=== PATIENT | male | born 1960 | race Caucasian/White ===

== ENCOUNTER 2019-01-31 08:14 | Day surgery (SDC) | payer BC ==
[~2019-01-31] VITALS: Ht 162.6 cm; Wt 88.8 kg
[~2019-01-31 08:14] MED LIST: AMLO10 PO; CARV3.125 PO; EZET10 PO; LO-DOSE ASPIRIN81 MG PO; METF500 PO; TRAN2 PO
== END 2019-01-31 10:24 | disposition home or self-care (01) ==
LOC: ORSCSDS 08:14
PROVIDERS: Surgery
PROC: 0DBL8ZX Excision of Transverse Colon, Via Natural or Artificial Opening Endoscopic, Diagnostic (ICD-10-PCS; principal; 2019-01-31 09:30)
DX: Z12.11 Encounter for screening for malignant neoplasm of colon (principal); D12.3 Benign neoplasm of transverse colon; Z86.010 Personal history of colon polyps; G47.33 Obstructive sleep apnea (adult) (pediatric); K21.9 Gastro-esophageal reflux disease without esophagitis; I10 Essential (primary) hypertension; E78.5 Hyperlipidemia, unspecified; E11.9 Type 2 diabetes mellitus without complications; E66.9 Obesity, unspecified; Z68.34 Body mass index [BMI] 34.0-34.9, adult; Z79.82 Long term (current) use of aspirin; Z79.84 Long term (current) use of oral hypoglycemic drugs; Z79.899 Other long term (current) drug therapy
CPT/HCPCS: 82947; 88305; J2704; J7120

== ENCOUNTER 2021-07-28 11:42 | Inpatient (IN) | payer BC ==
[~2021-07-28] VITALS: Ht 160 cm; Wt 85.8 kg
[~2021-07-28 11:42] MED LIST changes: +ASPIR 8181 MG PO; -LO-DOSE ASPIRIN81 MG PO; +NITR.4SL SL; +PANT40 PO; +TICA90TA PO
[2021-07-28 12:52] LABS: BASOPHILS ABSOLUTE AUTO 0.04 K/mm3 (0.00-0.23); BASOPHILS PERCENT AUTO 0 % (0-2); EOSINOPHILS ABSOLUTE AUTO 0.03 K/mm3 (0.00-0.68); EOSINOPHILS PERCENT AUTO 0 % (0-6); Hemoglobin 16.5 g/dL (13.5-17.5); IMMATURE GRAN ABSOLUTE AUTO 0.07 K/mm3 (0.00-0.10); IMMATURE GRAN PERCENT AUTO 1 % (0-1); LYMPHOCYTES ABSOLUTE AUTO 1.99 K/mm3 (0.84-5.20); LYMPHOCYTES PERCENT AUTO 14 % (21-46); MONOCYTES ABSOLUTE AUTO 1.83 K/mm3 (0.16-1.47); MONOCYTES PERCENT AUTO 13 % (4-13); Mean Corpuscular HGB 30.1 pg (26.0-34.0); Mean Corpuscular HGB Conc 35.1 g/dL (31.5-36.5); Mean Corpuscular Volume 86 fL (80-100); Mean Platelet Volume 10.8 fL (9.1-12.4); NEUTROPHILS ABSOLUTE AUTO 10.32 K/mm3 (1.96-9.15); NEUTROPHILS PERCENT AUTO 72 % (41-73); Platelet Count 201 K/mm3 (150-400); RDW Coefficient Variation 11.6 % (11.7-14.2); RDW Standard Deviation 36.6 fL (35.1-46.3); Red Blood Cell Count 5.49 M/mm3 (4.30-5.90); White Blood Cell Count 14.28 K/mm3 (4.00-11.30)
[2021-07-28 13:14] LABS: Troponin I <0.015 ng/mL (0.000-0.040)
[2021-07-28 13:16] LABS: Alanine Aminotransfer (ALT/SGP 67 U/L (12-78); Albumin, Blood 3.6 g/dL (3.4-5.0); Albumin/Globulin Ratio 0.8 (0.8-1.8); Alk Phos 85 U/L (50-136); Anion Gap 7 mmol/L (6-16); Aspartate Aminotrans (AST/SGOT 24 U/L (12-37); Bilirubin, Total 0.5 mg/dL (0.1-1.0); Blood Urea Nitrogen 23 mg/dL (8-24); Bun/Creatinine Ratio 16.8 (12.0-20.0); CO2, Blood 27 mmol/L (21-32); Calcium, Blood 9.7 mg/dL (8.5-10.1); Chloride, Blood 99 mmol/L (98-108); Creatinine, Blood 1.37 mg/dL (0.60-1.20); Globulin, Blood 4.6 g/dL (2.2-4.0); Glomerular Filtration Rate 53 (60-); Glucose, Blood 283 mg/dL (70-99); Potassium, Blood 3.6 mmol/L (3.5-5.5); Sodium, Blood 133 mmol/L (136-145); Total Protein, Blood 8.2 g/dL (6.4-8.2)
[2021-07-28] MEDS ORDERED: SPIR25 PO (17:17)
[2021-07-28] MEDS ORDERED: OMEP20ER PO (17:18)
[2021-07-28] MEDS ORDERED: OMEGA-3 + VITA200 ML PO (17:24)
[2021-07-28] MEDS ORDERED: REPATHA SU140 MG/1 M (17:26)
[2021-07-28] MEDS ORDERED: HYDCHL25 PO (17:27)
[2021-07-28] MEDS ORDERED: RANO500T PO (17:28)
[2021-07-28] MEDS ORDERED: FAMO40 PO (17:29)
--- NOTE | 2021-07-28 18:05 | NUR ---
ASSUMED CARE NOTE: ASSUMED CARE OF PT AT 1700, RECEVIED REPORT FROM KP CALVO. PT IS ALERT AND ORIENTEDX4, ABLE TO FOLLOW COMMANDS AND COMMUNICATE NEEDS. PT C/O ABD PAIN 5/10, DULL CONSTANT PAIN. PER REPORT MORPHINE WAS GIVEN ONCE, UNABLE TO TOLERATE EFFECTS STATES " IT MAKES MY CHEST FEEL HEAVY" PT IS IN NSR WITH HR IN THE 90'S, BP STABLE. ANTIBIOTICS ON HOLD PER . AMDIT HISTORY AND MED REQ COMPLETED. SEE FULL ASSESSMENT. WILL CONTINUE TO MONITOR PT UNTIL REPORT IS GIVEN TO MED/SURG NURSE.
[2021-07-28 19:25] LABS: Source, Urine Clean Catch
[2021-07-28 19:29] LABS: Appearance, Urine Clear (Clear); Bilirubin, Urine Neg (Neg); Blood, Urine Neg (Neg); Color, Urine Yellow (P-Yellow); Glucose Qualitative, Urine 4+ (Neg); Ketones, Urine Neg (Neg); Leukocyte Esterase, Urine Neg (Neg); Nitrite, Urine Neg (Neg); Protein, Urine Neg (Neg); Urobilinogen, Urine NORM (Normal)
[2021-07-28 20:58] LABS: CPK Creatine Kinase 108 U/L (39-308); Troponin I <0.015 ng/mL (0.000-0.040)
--- NOTE | 2021-07-28 22:27 | NUR ---
ADMIT NOTE 61 YR OLD MALE ADMITTED TO THE FLOOR FROM THE ED WITH DX OF SYNCOPAL EPISODES AND COLITIS. ED RN REPORTED PT HAD SYNCOPAL EPISODES AT WORK, EVEN HAVING A LOS OF CONSCIOUSNESS THERE AFTER REPORTING ABD PAIN AND FATIGUE. HX OF BRADYCARDIA, MA SOME 15 YR AGO WITH STENTS PLACED. NOTE CHEST SCAR WHEN PLACING ELECTRODES FOR TELE MONITORING. LABORER HIDE HOUSE REPORTS SINUS IN 90'S. ALERT AND OREIENTED X 4. CALL LIGHT IN REACH
--- NOTE | 2021-07-29 02:56 | NUR ---
SHIFT SUMMARY PT ADMITTED FROM ED FOR SYNCOPE AND CP. NO ACUTE CHANGES SINCE PT BROUGHT TO US. PT IS A&O X4, BUT WAS DROWSY. PT HAS BEEN SLEEPING SINCE COMING TO MEDICAL FLOOR. , JOE, WILL RETURN THIS AFTERNOOON, HER PHONE NUMBER IS ON THE BOARD. PT ON TELE WITH SINUS TACH IN THE 90'S. PT BIOX BETWEEN 90-95 ON HOME CPAP. NS RUNNING AT 75/HR, ORDER TO BE DC'D AFTER THIS BAG COMPLETE. CALL LIGHT WITHIN REACH. WILL CONTINUE TO MONITOR.
[2021-07-29 04:53] LABS: BASOPHILS ABSOLUTE AUTO 0.02 K/mm3 (0.00-0.23); BASOPHILS PERCENT AUTO 0 % (0-2); EOSINOPHILS PERCENT AUTO 0 % (0-6); Hematocrit 45.7 % (37.0-53.0); IMMATURE GRAN ABSOLUTE AUTO 0.04 K/mm3 (0.00-0.10); IMMATURE GRAN PERCENT AUTO 0 % (0-1); LYMPHOCYTES ABSOLUTE AUTO 0.88 K/mm3 (0.84-5.20); LYMPHOCYTES PERCENT AUTO 9 % (21-46); MONOCYTES ABSOLUTE AUTO 1.07 K/mm3 (0.16-1.47); MONOCYTES PERCENT AUTO 11 % (4-13); Mean Corpuscular HGB 29.9 pg (26.0-34.0); Mean Corpuscular Volume 85 fL (80-100); Mean Platelet Volume 10.7 fL (9.1-12.4); NEUTROPHILS ABSOLUTE AUTO 7.51 K/mm3 (1.96-9.15); NEUTROPHILS PERCENT AUTO 79 % (41-73); Platelet Count 154 K/mm3 (150-400); RDW Coefficient Variation 11.7 % (11.7-14.2); RDW Standard Deviation 36.3 fL (35.1-46.3); Red Blood Cell Count 5.35 M/mm3 (4.30-5.90); White Blood Cell Count 9.52 K/mm3 (4.00-11.30)
[2021-07-29 05:09] LABS: CPK Creatine Kinase 61 U/L (39-308); Troponin I <0.015 ng/mL (0.000-0.040)
[2021-07-29 05:17] LABS: Albumin/Globulin Ratio 0.7 (0.8-1.8); Bilirubin, Total 0.4 mg/dL (0.1-1.0); Bun/Creatinine Ratio 16.5 (12.0-20.0); Calcium, Blood 8.9 mg/dL (8.5-10.1); Creatinine, Blood 1.27 mg/dL (0.60-1.20); Globulin, Blood 4.2 g/dL (2.2-4.0); Potassium, Blood 3.3 mmol/L (3.5-5.5); Total Protein, Blood 7.2 g/dL (6.4-8.2)
[2021-07-29 13:31] LABS: Adenovirus F 40/41 Not Detected (NOT DETECT); Astrovirus Not Detected (NOT DETECT); Campylobacter Sp Not Detected (NOT DETECT); Cryptosporidium Not Detected (NOT DETECT); Cyclospora Cayetanensis Not Detected (NOT DETECT); E. Coli O157 Not Detected (NOT DETECT); Entamoeba Histolytica Not Detected (NOT DETECT); Enteroaggregative E. coli-EAEC Not Detected (NOT DETECT); Enteropathogenic E. coli-EPEC Not Detected (NOT DETECT); Enterotoxigenic E. coli-ETEC Not Detected (NOT DETECT); Giardia Lamblia Not Detected (NOT DETECT); Norovirus GI/GII Not Detected (NOT DETECT); Plesiomonas Shigelloides Not Detected (NOT DETECT); Rotavirus A Not Detected (NOT DETECT); Salmonella Sp Detected (NOT DETECT); Sapovirus Not Detected (NOT DETECT); Shiga Toxin-prod E. coli-STEC Not Detected (NOT DETECT); Shigella/Enteroin E. coli-EIEC Not Detected (NOT DETECT); Vibrio Cholerae Not Detected (NOT DETECT); Vibrio Sp Not Detected (NOT DETECT); Yersinia Enterocolitica Not Detected (NOT DETECT)
--- NOTE | 2021-07-29 13:39 | NUR ---
PT AAOX4, NO ACUTE DISTRESS NOTED,NOTED WITH A TEMP OF 101.3, MD NOTIFIED AND TYLENOL 650MG TAB GIVEN WITH GOOD EFFECT, STOOL SAMPLE COLLECTED AND SENT TO LAB, CALLED AND WAS CONCERNED, NOTIFIED MD AND HE SPOKE TO HER. LACTIC ACID 3.2 ,MD NOTIFIED ORDERS IN PLACE, FLIUDS INCREASED, BLOOD CULTURES DRAWN, PT UPDATED WITH POC, CALL LIGHT IN PLACE, WILL CONT TO MONITOR.
--- NOTE | 2021-07-29 14:03 | NUR ---
PT STOOL POSITIVE FOR SAMONELLA, STARTED ON ANTIBIOTICS LEVAQUIN. NOTIFIED PT.
--- NOTE | 2021-07-29 18:43 | NUR ---
SHIFT SUMMARY/PT TRANSFER PT TRANSFERRED OT UNIT FROM ROOM 309. PHYSICAL INSTRUCTOR RECIEVED REPORT FROM ROOM 309 RN. VSS. NO CP OR PRESSURE. FIRST BOLUS OF IV FLUID RUNNING AT THIS TIME. WILL CONT TO MONITOR UNTIL REPORT GIVEN TO NIGHTSHIFT RN.
--- NOTE | 2021-07-29 21:27 | NUR ---
CARE ASSUMPTION PT LYING IN BED W DAUGHTER AT BEDSIDE DENYING ANY PAIN OR NAUSEA. PT HAD SLIGHT CHILLS W A ORAL TEMP OF 100.1 SO TYLENOL GIVEN W TEMP NOW 99.0 AND CHILLS RESOLVED. LR RUNNING AT 125ML/HR. HR IN THE 80'S AND BP WNL. O2 SATS >92% ON RM AIR.
[2021-07-30 04:35] LABS: Anion Gap 6 mmol/L (6-16); Blood Urea Nitrogen 16 mg/dL (8-24); Bun/Creatinine Ratio 16.3 (12.0-20.0); CO2, Blood 23 mmol/L (21-32); Calcium, Blood 7.1 mg/dL (8.5-10.1); Chloride, Blood 110 mmol/L (98-108); Creatinine, Blood 0.98 mg/dL (0.60-1.20); Glomerular Filtration Rate >60 (60-); Glucose, Blood 206 mg/dL (70-99); Potassium, Blood 3.8 mmol/L (3.5-5.5); Sodium, Blood 139 mmol/L (136-145)
--- NOTE | 2021-07-30 04:59 | NUR ---
DIGITAL MARKETING MANAGER SUMMARY PT IS AXO X4 AND USES THE CALL LIGHT TO MAKE HIS NEEDS KNOWN. PT CONTINUED TO BE FEBRILE FOR THE FIRST HALF OF THE SHIFT W A PEAK TEMP OF 101.6 AND TEMP IN THE 98.0'S FOR THE REST OF THE SHIFT. PT'S BP WNL AND STABLE THIS SHIFT. PT'S O2 SATS >92% ON RM AIR AND CPAP WHILE ASLEEP. PT HAD ONE EPISODE OF INCONTINENT LOOSE STOOL DURING THE NIGHT. LR RUNNING AT 125ML/HR. WILL REPORT TO ONCOMING RN.
--- NOTE | 2021-07-30 10:12 | NUR ---
PATIENT ALERT AND ORIENTED X4. NEURO WNL. PERRLA. ABLE TO MOVE ALL EXTREMITIES IN BED. DENIES NUMBNESS/TINGLING. BILATERAL WATCH ENGINEER STRENGTH. TELE SHOWING SINUS RHYTHM WITH HR 90'S. DENIES CHEST PAIN/PRESSURE. VITAL SIGNS STABLE. ON ROOM AIR SATING MID-HIGH 90'S. DENIES SOB. LUNGS SOUNDING CLEAR AND DIM IN BASES. NO COUGH. MILD ABDOMINAL DISTENTION. PATIENT DENIES ABDOMINAL PAIN BUT DESCRIBES IT A "DISCOMFORT". HAVING EPISODES OF DIARRHEA, PRN IMMODIUM. URINATING WNL. SKIN OVERALL C/D/I. T MAX THIS AM 101.5. TYLENOL AND IBUPROFEN GIVEN. TEMP TRENDING DOWN 99.6. WILL CONTINUE TO MONITOR. LR INFUSING AT THIS TIME. CALL LIGHT IN REACH. PATIENT CURRENTLY SLEEPING.
--- NOTE | 2021-07-30 12:46 | NUR ---
ONE LOOSE BOWEL MOVMENT THIS AFTERNOON. LR STOPPED AT 1200, ORDERS TO INFUSE FOR ONE DAY. LACTATE TRENDING DOWN. CALL PLACED TO GIRLFRIEND JOE FOR UPDATE. MEDICAL STATUS, NO TELE.
--- NOTE | 2021-07-30 17:39 | NUR ---
SHIFT SUMMARY: NO ACUTE CHANGES. PATIENT REMAINS ALERT AND ORIENTED. ON ROOM AIR. MEDICAL STATUS NO TELE. COMPLAINS OF MILD NAUSEA THIS EVENING, MEDICATED WITH ZOFRAN AND GOOD RELIEF. ANTIBIOTICS INFUSED. DAUGHTER AT BEDSIDE VISITING. VITALS SIGNS STABLE T MAX THIS SHIFT 101.5, AT THIS TIME 98.3. WILL CONTINUE TO MONITOR AND REPORT OFF.
--- NOTE | 2021-07-30 22:25 | NUR ---
ASSUMPTION OF CARE ASSUMED CARE OF PT FROM SAILAJA Lazo AT 2100. AGREE WITH ASSESMENT CHARTED AND INTERVENTIONS NOTED.
--- NOTE | 2021-07-31 05:33 | NUR ---
SHIFT SUMMARY NO ACUTE CHANGES THIS SHIFT. AXO. IN SR. TMAX 99.8. DIARRHEA LESSENING QUICKLY, HAS NOT REQUIRED IMMODIUM THIS SHIFT. PT HAS BEEN RESTING WITH HOME CPAP T/O SHIFT. UP IN ROOM W/O COMPLICATION. PT EAGER TO DC TODAY.
[2021-07-31] MEDS ORDERED: LEVO750 PO (12:53)
[2021-07-31] MEDS ORDERED: LOPE2C PO (12:53)
[2021-07-31] MEDS ORDERED: ONDA4 PO (12:54)
[2021-07-31] MEDS ORDERED: PROBIOTIC1 EA13 PO (12:57)
--- NOTE | 2021-07-31 14:15 | NUR ---
PT DISCHARGED HOME WITH ALL BELONGINS, PT DTR PRESENT AT BEDSIDE FOR DISCHARGE TEACHING INCLUDING FOLLOW UP APPOINTMENT, MEDICATION LIST AND EDUCATION. NO QUESTIONS OR CONCERNS FROM PT OR HIS DTR. IV AND POWERGLIDE REMOVED, WNL. PT STEADY ON HIS FEET AND ABLE TO AMBULATE IN ROOM WITHOUT ASSISTANCE. NO FURTHER DISCHARGE NEEDS IDENTIFIED AT THIS TIME.
== END 2021-07-31 14:05 | disposition home or self-care (01) | DRG 871 ==
LOC: ER 11:42 → ERHOLD 16:33 → MEDS 16:34 → ERHOLD 16:34 → MEDS 21:55 → PCU 07-29 18:26
PROVIDERS: Internal Medicine; Physician Assistant; ADMIT Internal Medicine
DX: A02.1 Salmonella sepsis (principal); R65.21 Severe sepsis with septic shock; A02.0 Salmonella enteritis; N17.9 Acute kidney failure, unspecified; E87.1 Hypo-osmolality and hyponatremia; I25.10 Atherosclerotic heart disease of native coronary artery without angina pectoris; K21.9 Gastro-esophageal reflux disease without esophagitis; I12.9 Hypertensive chronic kidney disease with stage 1 through stage 4 chronic kidney disease, or unspecified chronic kidney disease; E86.0 Dehydration; E87.6 Hypokalemia; K76.0 Fatty (change of) liver, not elsewhere classified; E11.22 Type 2 diabetes mellitus with diabetic chronic kidney disease; N18.2 Chronic kidney disease, stage 2 (mild); Z28.21 Immunization not carried out because of patient refusal; Z88.8 Allergy status to other drugs, medicaments and biological substances; Z88.2 Allergy status to sulfonamides; Z95.1 Presence of aortocoronary bypass graft; Z95.5 Presence of coronary angioplasty implant and graft; I25.2 Old myocardial infarction
CPT/HCPCS: 0097U; 36415; 71046; 74177; 80048; 80053; 81003; 82550; 82947; 83605; 83880; 84484; 85025; 87040; 93005; 93010; 94760; 96365; 96375; 99285-25; A9270; G0378; J0295; J1650; J1815; J1956; J2270; J2405; J7030; J7120; Q9967

== ENCOUNTER 2025-06-21 09:02 | Emergency (ER) | payer BC ==
[~2025-06-21] VITALS: Ht 160 cm; Wt 81.5 kg
[~2025-06-21 09:02] MED LIST changes: +FAMO40 PO; +HYDCHL25 PO; +LEVO750 PO; +LOPE2C PO; +OMEGA-3 + VITA200 ML PO; +OMEP20ER PO; +ONDA4 PO; +PROBIOTIC1 EA13 PO; +RANO500T PO; +REPATHA SU140 MG/1 M; +SPIR25 PO
[2025-06-21 09:33] LABS: BASOPHILS ABSOLUTE AUTO 0.05 K/mm3 (0.00-0.23); BASOPHILS PERCENT AUTO 1 % (0-2); EOSINOPHILS ABSOLUTE AUTO 0.12 K/mm3 (0.00-0.68); EOSINOPHILS PERCENT AUTO 1 % (0-6); Hematocrit 51.9 % (37.0-53.0); Hemoglobin 18.2 g/dL (13.5-17.5); IMMATURE GRAN ABSOLUTE AUTO 0.03 K/mm3 (0.00-0.10); IMMATURE GRAN PERCENT AUTO 0 % (0-1); LYMPHOCYTES ABSOLUTE AUTO 1.57 K/mm3 (0.84-5.20); LYMPHOCYTES PERCENT AUTO 19 % (21-46); MONOCYTES ABSOLUTE AUTO 0.81 K/mm3 (0.16-1.47); MONOCYTES PERCENT AUTO 10 % (4-13); Mean Corpuscular HGB Conc 35.1 g/dL (31.5-36.5); Mean Corpuscular Volume 87 fL (80-100); NEUTROPHILS ABSOLUTE AUTO 5.88 K/mm3 (1.96-9.15); NEUTROPHILS PERCENT AUTO 69 % (41-73); NRBC ABSOLUTE 0.00 K/mm3 (0.00-0.02); NRBC Auto 0.0 /100 WBC (0.0-0.2); Platelet Count 186 K/mm3 (150-400); RDW Coefficient Variation 11.8 % (11.7-14.2); RDW Standard Deviation 37.9 fL (35.1-46.3)
[2025-06-21 09:46] LABS: Prothrombin Time Results 13.1 Sec (9.7-11.5)
[2025-06-21] MEDS ORDERED: NS 1,000 ML IV SCH ×2 (09:50→10:40)
[2025-06-21 09:53] LABS: Alanine Aminotransfer (ALT/SGP 36.0 U/L (12-78); Albumin, Blood 3.6 g/dL (3.4-5.0); Albumin/Globulin Ratio 0.8 (0.8-1.8); Anion Gap 10.0 mmol/L (3-11); Aspartate Aminotrans (AST/SGOT 19.0 U/L (12-37); Bilirubin, Total 0.4 mg/dL (0.1-1.0); Blood Urea Nitrogen 23.0 mg/dL (8-24); CO2, Blood 29.0 mmol/L (21-32); Calcium, Blood 8.7 mg/dL (8.5-10.1); Chloride, Blood 100.0 mmol/L (98-108); Creatinine, Blood 1.44 mg/dL (0.60-1.20); Globulin, Blood 4.3 g/dL (2.2-4.0); Glucose, Blood 183.0 mg/dL (70-99); Potassium, Blood 4.6 mmol/L (3.5-5.5); Sodium, Blood 134.0 mmol/L (136-145); Total Protein, Blood 7.9 g/dL (6.4-8.2)
[2025-06-21 13:30] VITALS: BP 115/70
== END 2025-06-21 13:45 | disposition home or self-care (01) ==
LOC: ER 09:02
PROVIDERS: Physician Assistant
DX: E86.0 Dehydration (principal); R55 Syncope and collapse; Z88.2 Allergy status to sulfonamides; Z88.8 Allergy status to other drugs, medicaments and biological substances; Z79.899 Other long term (current) drug therapy; Z79.82 Long term (current) use of aspirin; K21.9 Gastro-esophageal reflux disease without esophagitis
CPT/HCPCS: 70450; 70496; 70498; 80053; 82947; 83735; 83880; 84484; 85025; 85610; 93005; 93010; 93246; 96360-59; 96361; 99284-25; J7030; Q9967